=== PATIENT | female | born 1940 | race Caucasian/White ===

== ENCOUNTER → 2019-04-06 | Outpatient (CLI) | payer MEDICARE, OTHER, SELFPAY | PROVIDERS: Visit Provider Specialist | DX: Z08 Encounter for follow-up examination after completed treatment for malignant neoplasm (principal); Z85.41 Personal history of malignant neoplasm of cervix uteri; I89.0 Lymphedema, not elsewhere classified; Z87.448 Personal history of other diseases of urinary system | CPT/HCPCS: 99213 ==

== ENCOUNTER 2019-10-06 08:12 | Outpatient (CLI) | payer MEDICARE, OTHER, SELFPAY ==
--- NOTE | 2019-10-06 08:29 | CT_ITS ---
WS: [id number] CT CHEST, ABDOMEN, AND PELVIS TECHNIQUE: Contrast-enhanced CT of the chest, abdomen, and pelvis with coronal and sagittal reformatt ed images. CLINICAL INFORMATION: MALIGNANT NEOPLASM OF ENDOCERVIX COMPARISON: CT chest abdomen pelvis March 30, 2019, September 13, 2018, February 21, 2018 DLP: 1791.[address] scans at [facility] use at least one of these dose optimization techniques: automat ed exposure control; mA and/or kV adjustment per patient size (includes targeted exams where dose is matched to clinical indication); or iterative reconstruction. CT CHEST: Moderate chronic emphysematous changes. No acute pulmonary infiltrates. Slight atelectasis right lung base with elevation right hemidiaphragm unchanged. No evidence of metastatic disease in the chest. T hyroid is normal. No mediastinal or hilar lymphadenopathy. Proximal main pulmonary arteries are riccardo l. Normal aorta. No axillary lymphadenopathy. Moderate esophageal hiatal hernia. CT ABDOMEN AND PELVIS: Liver is normal. Prior cholecystectomy. Dilatation common bile duct and intrahepatic ducts is stable and likely physiologic. Common bile duct measures 12 mm. Normal renal parenchymal enhancement. Normal adrenal glands. Spleen is normal. Pancreatic fatty atrophy. No evidence of bowel obstruction. No free fluid in the pelvis. Aortic calci fication. No retroperitoneal or periotic lymphadenopathy. No inguinal lymphadenopathy. Postoperative changes pedicle screw fixation L4-S1 with interbody fusion grafts. Slight anterolisthes is L4 on L5. Hardware appears intact. Thoracolumbar scoliosis convex right. CT/CT chest abd pel w con* IMPRESSION: 1. No evidence of metastatic disease in the chest abdomen or pelvis. 2. Prior hysterectomy and cholecystectomy. 3. No mediastinal or hilar lymphadenopathy. 4. Moderate esophageal hiatal hernia. 5. Elevation right hemidiaphragm unchanged.
[2019-10-06] MEDS: iohexol 300 mg/mL 50 mL Btl IV (10:16)
[2019-10-06] MEDS: iodixanol 320 mg/mL 100mL Btl IV (10:16)
[2019-10-06 10:45] LABS: Blood Urea Nitrogen 19 mg/dL (8-23)
== END 2019-10-06 08:13 | disposition home or self-care (01) ==
LOC: RADWPI 08:23
PROVIDERS: Family Provider Family Medicine; PCP Family Medicine; Visit Provider Radiology Radiation Oncology
DX: C53.0 Malignant neoplasm of endocervix (principal); K44.9 Diaphragmatic hernia without obstruction or gangrene
CPT/HCPCS: 71260; 74177; 82565; 84520; Q9967

== ENCOUNTER 2019-10-12 10:44 | Outpatient (CLI) | payer MEDICARE, OTHER, SELFPAY ==
--- NOTE | 2019-10-13 12:24 | ONCRAD EPV_ITS ---
Radiation Oncology Established Patient Visit Patient: Shravan MR#: [id number] : 1940> Age: 79> Sex: Female> Dictated by: Dr. Jayce Doshi Date of Service: 10/12/2019 Referring Physician(s) : Dr. 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 ID: [id number], Energy: 6X, Dose/Fx (cGy): 180, #Fx: , Dose Correction (cGy): 0, Total Dose (cGy): 4,680, Start Date: 09/23/2016, End Date: 10/29/2016, Elapsed Days: 36 Treatment Site: [id number], Ref. ID: [id number], Energy: 6X, Dose/Fx (cGy): 180, #Fx: / , Dose Correction (cGy): 0, Total Dose (cGy): 360, Start Date: 10/30/2016, End Date: 11/02/2016, Elapsed Days: 3 Current History: The patient is seen today in follow up. She was last seen by Radiation Oncology on 04/06/2019. Since that time, she has had a CT of the chest, abd/pelvis (10/06/2019) and this revealed no evidence of disease recurrence or metastasis. She reports that she is sexually active, she is without dyspareunia, she has no diarrhea, no bloody stools, no painful bowel movements, no vaginal discharge, and no abdominal/pelvic pain. She does report left sided weakness from a prior diagnosis of polio. Current Medications: Colestipol HCl, gabapentin, ibuprofen, k-Tab, lasix, nIFEdipine ER Osmotic Release, priLOSEC OTC, sertraline HCl. Allergies: Pneumonia Vaccine, Morphine Sulfate and Tylenol. Current Complaints / Review of Systems: Constitutional - Complains of severe fatigue. Denies lack of appetite, fever, night sweats and change in weight. Eyes - Complains of double vision which happened while in the waiting room. It went away after blinking her eyes really fast. Denies blurred vision. ENMT - Complains of mouth dryness and altered taste occasionally with certain foods. Denies dysphagia but occasionally had odynophagia with certain foods, ear pain, stomatitis and tinnitus. Neck - Denies neck pain. Integumentary - Denies rash. Breasts - Denies pain. Cardiovascular - Complains of edema from both knees down to the ankles. Denies arrhythmias and chest pain. Respiratory - Complains of a mild cough from sinsus drainage. Complains of mild dyspnea associated with normal activity. Denies wheezing. Gastrointestinal - Complains of abdominal pain that is intermittent located in left lower quadrant. Complains of occasional constipation. Complains of intermittent diarrhea which is characterized as loose, watery. Complains of heartburn / dyspepsia. Denies melena / GI bleeding, nausea and vomiting. Genitourinary (F) - Complains of occasional incontinence. Denies dysuria, frequency, hematuria, nocturia, urgency, vaginal discharge / bleeding and vaginal spotting. Musculoskeletal - Complains of bone pain in both lower legs, joint pain in both hips and muscle weakness has left sided weakness due to having Polio. Neurologic - Complains of abnormal gait. Complains of mild headaches in which she gets on about every day. Has had this issue for a long time but becoming more frquent. Complains of insomnia characterized by trouble falling asleep. Denies dizziness. Endocrine - Denies diabetes and thyroid disease. Hematologic/Lymphatic - Denies tender or enlarged lymph nodes.. Vital Signs: Performed on 10/12/2019 11:47 AM BMI - 24.336 kg/m2 (high), Height - 64.50 in, Weight - 144.0 lbs, Temperature - 98.3 f, Pulse - 62, Respiration - 18, O2 Sat - 95 % (low), Pain - 0 and BP - 107/ 71 mm(hg). Physical Exam: General: Alert and oriented x 3. No acute distress. HEENT: Normocephalic, atraumatic. Extraocular Movements Intact: Pupils Equal, Round, Reactive to Light, Sclerae anicteric. Oral cavity is clear without lesions, masses or ulcers. NECK: Supple without supraclavicular or jugular lymphadenopathy. LUNGS: Clear to auscultation bilaterally without rales, rhonchi or wheeze. HEART: Regular rate and rhythm, normal S1 and S2 without murmur, gallop or rub. Genital/speculum exam was deferred due to patient preferences. EXTREMITIES: Bilateral lower extremity edema is present. The patient attests that this was present prior to surgery. NEUROLOGIC: Cranial nerves II ???XII are grossly intact. Performance Status: 1 - No physically strenuous activity, but ambulatory and able to carry out light or sedentary work (e.g. office work, light house work). (ECOG) Lab: None pending. Pathology: Primary, c53.0 - malignant neoplasm of endocervix, Diagnosed 09/03/2016 (active) stage ib1, t1b1, n0, m0. Imaging: See HPI Impression: The patient is a 79 year old female with pathologic stage T1b1 N0M0 cervical cancer status post robotic laparoscopic radical hysterectomy, bilateral pelvic and periaortic lymph node dissection (17 pelvic Lns & 8 periaortic LNs), and bilateral salpingo-oophorectomy on 06/04/2016 followed by 46.8 Gy of external beam radiation therapy completed 10/29/2016 due to size (3.2 cm) and deep stromal invasion (10/14 mm). There was no LVI. In follow up, the most recent CT of the chest/abd/pelvis (10/06/2019) revealed no radiographic evidence of disease recurrence. Furthermore, the patient reports no review of systems that are worrisome for recurrence or significant termite control representative side effects from radiotherapy. Ideally, follow up for this patient should include: H&P inclusive of speculum examination every 3-6 months for the first two years, then every 6-12 months for the first 5 years, then annually thereafter. Furthermore, we need to do vaginal cytology once per year. Since the patient is sexually active, and experiences no dyspareunia, I don???t anticipate difficulties with the speculum exam. Plan: Follow up at the end of October for a speculum exam and vaginal cytology. Afterwards, follow up with Radiation Oncology Q 6 months. The patient does not have [employer] or solar energy technician following to assist with oncologic surveillance. Signed by: 10/13/2019 12:22:18 PM <<Signature on File>> Time spent with patient: CPT Code: CPT Code:
== END 2019-10-12 10:45 | disposition home or self-care (01) ==
LOC: ONCMED 10:54
PROVIDERS: PCP Family Medicine; Visit Provider Radiology Radiation Oncology
DX: Z08 Encounter for follow-up examination after completed treatment for malignant neoplasm (principal); Z85.41 Personal history of malignant neoplasm of cervix uteri; F41.9 Anxiety disorder, unspecified; M47.9 Spondylosis, unspecified; K21.9 Gastro-esophageal reflux disease without esophagitis; E78.5 Hyperlipidemia, unspecified; I10 Essential (primary) hypertension; G62.9 Polyneuropathy, unspecified; K58.9 Irritable bowel syndrome, unspecified; Z79.899 Other long term (current) drug therapy; Z92.3 Personal history of irradiation
CPT/HCPCS: 99213